=== PATIENT | male | born 1995 | race Caucasian/White ===

== ENCOUNTER 2017-02-19 11:35 | Emergency (ER) | payer OTHER ==
--- NOTE | 2017-02-19 12:39 | XRAY Preliminary Report ---
Exam: XR KNEE 4 VIEW RT IMPRESSION: 1. No acute osseous abnormalities. [facility] SITE ID: [id number]
--- NOTE | 2017-02-19 12:42 | XRAY Report ---
EXAM: RIGHT KNEE RADIOGRAPHY EXAM DATE: 02/19/2017 12:31 PM. CLINICAL HISTORY: Pain after hitting a rock and patella shifted. COMPARISON: None. TECHNIQUE: 4 views. FINDINGS: Bones: Normal. No fractures or bone lesions. Joints: Normal alignment. Small right knee effusion. No dislocation. Soft Tissues: No radiopaque foreign bodies. Soft tissue edema. IMPRESSION: 1. No acute osseous abnormalities. [facility] Referring Provider Line: [phone] SITE ID: [id number]
--- NOTE | 2017-02-19 13:13 | ED Physician Documentation ---
PD HPI LOWER EXT INJURY - Stated complaint Stated Complaint: GLF/KNEE PX - Chief complaint Chief Complaint: Ext Problem - History obtained from History obtained from: Patient, Friend - History of Present Illness PD HPI LOW EXT INJURY LOCATION: Right, Knee Type of injury: Fall Where injury occurred: Park Timing - onset: Last night Timing - duration: Hours Timing - details: Abrupt onset, Still present Improved by: Rest, Ice, Immobilization Worsened by: Moving, Palpating Associated symptoms: Swelling. No: Weakness, Numbness, Tingling Contributing factors: No: Anticoagulated Similar symptoms before: Has not had sx before Recently seen: Not recently seen - Additional information Additional information: 21-year-old male was out hiking on [facility] last night when he slipped and fell and hit a rock on the right knee above the patella. He is limping today but he is able to walk is able to bear weight. He has pain with attempting to extend the lower extremity. Review of Systems Constitutional: denies: Fever Eyes: denies: Decreased vision Ears: denies: Ear pain Nose: denies: Congestion Throat: denies: Sore throat Cardiac: denies: Chest pain / pressure, Palpitations Respiratory: denies: Dyspnea, Cough GI: denies: Vomiting Skin: denies: Rash Musculoskeletal: reports: Extremity pain, Pain with weight bearing. denies: Neck pain, Back pain PD PAST MEDICAL HISTORY - Past Medical History Past Medical History: Yes Cardiovascular: None Respiratory: Other Neuro: Head injury Endocrine/Autoimmune: None GI: None : None HEENT: Other Psych: None Musculoskeletal: None Derm: None - Past Surgical History Past Surgical History: Yes - Present Medications Home Medications: Ambulatory Orders Medication Instructions Recorded Confirmed No Known Home Medications [No 11/23/14 02/19/17 Known Home Medications] - Allergies Allergies/Adverse Reactions: Allergies Allergy/AdvReac Type Severity Reaction Status Date / Time No Known Drug Allergies Allergy Verified 02/19/17 11:49 - Social History Does the pt smoke?: Yes Smoking Status: Current every day smoker Does the pt drink ETOH?: No Does the pt have substance abuse?: No - Immunizations Immunizations are current?: Yes PD ED PE NORMAL - Vitals Vital signs reviewed: Yes (hypertensive ) - General General: No acute distress, Well developed/nourished - HEENT HEENT: Atraumatic, PERRL, EOMI - Respiratory Respiratory: No respiratory distress - Derm Derm: Normal color, Warm and dry, No rash - Extremities Extremities: No deformity, No edema, Other (There is some mild swelling in the right knee above the patella. The patella itself is nontender and the ligaments are stable there is not appear to be any joint effusion. The knee runs through a good range of motion without difficulty he does have pain over the area of the contusion with extension of the lower extremity. He does walk with a limp.) - Neuro Neuro: No motor deficit, No sensory deficit - Psych Psych: Normal mood, Normal affect Results - Vitals Vitals: Vital Signs - 24 hr 02/19/17 11:40 Temperature 37.4 C Heart Rate 97 Respiratory 18 Rate Blood Pressure 150/84 H O2 Saturation 100 Oxygen O2 Source Room air - Rads (name of study) right knee Radiology: Prelim report reviewed (Impression: No acute osseous abnormalities.) , EMP read indepedently, See rad report PD MEDICAL DECISION MAKING - ED course Complexity details: reviewed results, re-evaluated patient, considered differential, d/w patient, d/w family ED course: 21-year-old male with a contusion to the right knee above the patella over the patellar tendon.He does have pain with extension and he is placed into a knee immobilizer for functionality. 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 Departure - Departure Disposition: 01 Home, Self Care Clinical Impression: Knee contusion Qualifiers: Encounter type: initial encounter Laterality: right Qualified Code(s): S80.01XA - Contusion of right knee, initial encounter Condition: Stable Instructions: ED Contusion Lower Ext Follow-Up: [facility] [Provider Group] Comments: Today in the Emergency Department your blood pressure was elevated. This can happen from the stress of the visit itself, from a current illness or circumstance or from uncontrolled hypertension. If you take blood pressure medications take your usual mediations, have your blood pressure re-checked in an appropriate setting and follow up any elevation with your primary care doctor.
[2017-02-19 13:27] VITALS: BP 132/82
== END 2017-02-19 13:25 | disposition home or self-care (01) ==
LOC: ED 11:35
DX: S80.01XA Contusion of right knee, initial encounter (principal); W01.198A Fall on same level from slipping, tripping and stumbling with subsequent striking against other object, initial encounter; Y93.01 Activity, walking, marching and hiking; Y92.828 Other wilderness area as the place of occurrence of the external cause; F17.200 Nicotine dependence, unspecified, uncomplicated; R03.0 Elevated blood-pressure reading, without diagnosis of hypertension
CPT/HCPCS: 29530; 99283

== ENCOUNTER 2018-08-05 14:29 | Emergency (ER) | payer OTHER ==
[2018-08-05 14:37] VITALS: BP 159/79
--- NOTE | 2018-08-05 14:38 | ED Physician Documentation ---
PD HPI UPPER EXT INJURY - Stated complaint Stated Complaint: R ARM INJ - Chief complaint Chief Complaint: Ext Problem - History obtained from History obtained from: Patient - History of Present Illness Location: Right Type of injury: Blunt / blow (He states he tried to catch a car transmission when the strap on it broke. He had a twisting and impact motion to the right hand and is tender at the very distal ulnar area with and also the ulnar side of the hand. The fingers are not injured. The he denies other injury.) Where injury occurred: Other Timing - onset: Today Timing - details: Abrupt onset Worsened by: Moving, Palpating Associated symptoms: Swelling. No: Weakness, Numbness Review of Systems Skin: reports: Abrasion (s). denies: Laceration (s) Neurologic: denies: Focal weakness, Numbness PD PAST MEDICAL HISTORY - Past Medical History Cardiovascular: None Respiratory: Other Endocrine/Autoimmune: None GI: None : None HEENT: Other Psych: None Musculoskeletal: None Derm: None - Past Surgical History Past Surgical History: Yes - Present Medications Home Medications: Ambulatory Orders Medication Instructions Recorded Confirmed No Known Home Medications 11/23/14 08/05/18 - Allergies Allergies/Adverse Reactions: Allergies Allergy/AdvReac Type Severity Reaction Status Date / Time No Known Drug Allergies Allergy Verified 08/05/18 14:37 - Social History Does the pt smoke?: Yes Smoking Status: Current every day smoker Does the pt drink ETOH?: No Does the pt have substance abuse?: No - Immunizations Immunizations are current?: Yes PD ED PE NORMAL - Vitals Vital signs reviewed: Yes - General General: Alert and oriented X 3, No acute distress, Well developed/nourished - Derm Derm: Normal color, Warm and dry - Extremities Extremities: Other (right hand on ulnar side with local swelling and tenderness. Some tenderness just at distal ulnar styloid area. ) - Neuro Neuro: No motor deficit, No sensory deficit Results - Vitals Vitals: Vital Signs - 24 hr 08/05/18 14:36 Temperature 36.3 C L Heart Rate 92 Respiratory 14 Rate Blood Pressure 159/79 H O2 Saturation 100 Oxygen O2 Source Room air - Rads (name of study) right ahnd Radiology: Prelim report reviewed (no fractures), EMP read contemporaneously, See rad report PD MEDICAL DECISION MAKING - ED course Complexity details: reviewed results (No fractures but he is swollen and sore with movement so can place him in a splint for comfort for a few days. A little ibuprofen as needed for pains. Ice elevate and rested today for swelling.), considered differential, d/w patient Departure - Departure Disposition: 01 Home, Self Care Clinical Impression: Hand contusion Qualifiers: Encounter type: initial encounter Laterality: right Qualified Code(s): S60.221A - Contusion of right hand, initial encounter Condition: Stable Record reviewed to determine appropriate education?: Yes Instructions: ED Sprain Hand Comments: Use a splint as needed for comfort over the next few days and progress use as able. Ice rest and elevate it often today to reduce swelling. Tylenol or ibuprofen or Aleve as needed for pains. Recheck if not better over the next several days to week. No fractures are seen on the x-ray. Discharge Date/Time: 08/05/18 15:38
--- NOTE | 2018-08-05 15:22 | XRAY Report ---
Reason: hand injury; twist/impact from heavy object Procedure Date: 08/05/2018 Accession Number: [id number] / [id number] Procedure: XR - Hand 3 View RT CPT Code: FULL RESULT: EXAM: RIGHT HAND RADIOGRAPHY EXAM DATE: 08/05/2018 02:56 PM. CLINICAL HISTORY: Hand injury; twist/impact from heavy object. Minimal pain, small lateral laceration. COMPARISON: XR FINGER MIN 2 VIEWS 10/02/2011 5:22 PM XR HAND MIN 3 VIEWS 05/29/2010 4:15 PM. TECHNIQUE: 3 views. FINDINGS: Bones: Probable bone island at the first proximal phalanx. Old healed fracture deformity noted at the fifth metacarpal distal aspect. No evidence for acute fracture. Joints: Normal. No subluxations. Soft Tissues: Unremarkable. No radiopaque foreign body seen. No soft tissue gas identified. IMPRESSION: No acute findings. [facility]
== END 2018-08-05 15:38 | disposition home or self-care (01) ==
LOC: ED 14:29
DX: S60.221A Contusion of right hand, initial encounter (principal); X50.1XXA Overexertion from prolonged static or awkward postures, initial encounter; Y93.89 Activity, other specified; F17.200 Nicotine dependence, unspecified, uncomplicated
CPT/HCPCS: 99282

== ENCOUNTER 2021-02-01 12:16 | Outpatient (CLI) | payer OTHER | END 2021-02-01 12:17 | disposition home or self-care (01) | LOC: COV 12:16 | PROVIDERS: ATTEND Family Medicine | DX: R53.83 Other fatigue (principal); R09.81 Nasal congestion; J34.89 Other specified disorders of nose and nasal sinuses; R11.2 Nausea with vomiting, unspecified; Z20.822 Contact with and (suspected) exposure to COVID-19 ==

== ENCOUNTER 2023-07-23 14:50 | Outpatient (CLI) | payer SELFPAY ==
--- NOTE | 2023-07-23 15:58 | XRAY Report ---
PROCEDURE: Elbow 3+V RT INDICATIONS: RIGHT ELBOW CONTUSION TECHNIQUE: 3 views of the elbow were acquired. COMPARISON: None. FINDINGS: Bones: No fractures or dislocations. No suspicious bony lesions. Soft tissues: No effusion. No suspicious soft tissue calcifications or masses. IMPRESSION: No visualized acute fracture or dislocation. However, occult injury cannot be excluded. Recommend chato rt interval imaging follow-up in 7-10 days as clinically indicated for additional evaluation. Reviewed by: Kenna Agarwal MD on 07/23/2023 3:57 PM PDT Approved by: Kenna Agarwal MD on 07/23/2023 3:57 PM PDT Station ID: [id number]
== END 2023-07-23 14:51 | disposition home or self-care (01) ==
LOC: DI 14:50
PROVIDERS: ATTEND Family Medicine
DX: S50.01XA Contusion of right elbow, initial encounter (principal)